=== PATIENT | female | born 1990 | race African-American/Black ===

== ENCOUNTER 2017-01-28 19:29 | Emergency (ER) | payer OTHER ==
[~2017-01-28 19:29] MED LIST: HYDR-971 PO; NAPR500T8 PO; ONDA8TAB12 PO; PNV1TABL25 PO
--- NOTE | 2017-01-28 20:18 | PHYS DOC ---
Past Medical History Past Medical History: Bronchitis Additional Past Medical Histor: hurstism, zofran pump Past Surgical History: Other Additional Past Surgical Histo: right knee surgery Alcohol Use: None Drug Use: None Adult General Chief Complaint Chief Complaint: BACK INJURY HPI HPI Patient is a 27 year old female who presents with back pain for 2 days. 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 2 days ago patient had gradual onset of lumbar back pain with no radiation into lower extremities. No change in bowel or bladder function. No abdominal pain no vomiting or diarrhea. Patient denies any history of back injuries in the past. Patient denies possible Review of Systems Review of Systems Constitutional: Denies fever or chills Eyes: Denies change in visual acuity, redness, or eye pain HENT: Denies nasal congestion or sore throat Respiratory: Denies cough or shortness of breath Cardiovascular: No chest pain or palpitations GI: Denies abdominal pain, nausea, vomiting, bloody stools or diarrhea : Denies dysuria or hematuria Musculoskeletal: Paravertebral lumbar back pain from the L2-L4 region bilaterally with right greater than left. Integument: Denies rash or skin lesions Neurologic: Denies headache, focal weakness or sensory changes Endocrine: Denies polyuria or polydipsia Allergies Allergies Allergies Coded Allergies Type Severity Reaction Last Updated Verified No Known Drug Allergies 07/21/16 No Physical Exam Physical Exam Constitutional: Well developed, well nourished, no acute distress, non-toxic appearance. HENT: Normocephalic, atraumatic, oropharynx moist, no oral exudates, nose normal. Eyes: PERRLA, EOMI, conjunctiva normal, no discharge. Neck: Normal range of motion, no tenderness, supple, no stridor. Cardiovascular:Heart rate regular rhythm, no murmur Lungs & Thorax: Bilateral breath sounds clear to auscultation Abdomen: Bowel sounds normal, soft, no tenderness, no masses, no pulsatile masses. Skin: Warm, dry, no erythema, no rash. Back: Bilateral lumbar paravertebral L to through L4 tenderness, no CVA tenderness. Extremities: No tenderness, no cyanosis, no clubbing, no edema. Neurologic: Alert and oriented X 3, normal motor function, normal sensory function, no focal deficits noted. Psychologic: Affect normal, judgement normal, mood normal. Current Patient Data Vital Signs Vital Signs Date Time Temp Pulse Resp B/P Pulse Ox O2 Delivery O2 Flow Rate FiO2 01/28/17 20:28 90 16 117/80 99 Room Air 01/28/17 19:34 97.7 97.7 EKG EKG [] Radiology/Procedures Radiology/Procedures [] Course & Med Decision Making Course & Med Decision Making Pertinent Labs and Imaging studies reviewed. (See chart for details) [] Dragon Disclaimer Dragon Disclaimer This electronic medical record was generated, in whole or in part, using a voice recognition dictation system. Departure Departure Impression: Primary Impression: Lumbar back sprain Disposition: HOME, SELF-CARE Condition: STABLE Referrals: LEX MERAZ MD (PCP) Patient Instructions: Back Injury Prevention, [id number] Scripts Cyclobenzaprine Hcl 10 Mg Tablet1 Tab PO TID #10 TAB Prov:DARIANA CORTES MD 01/28/17 Naproxen Sodium 550 Mg Tablet1 Tab PO BID #30 TAB Prov:DARIANA CORTES MD 01/28/17 Problem Qualifiers Primary Impression: Lumbar back sprain Encounter type: initial encounter Qualified Code: S33.5XXA - Sprain of ligaments of lumbar spine, initial encounter DARIANA CORTES MD Jan 28, 2017 20:17
[2017-01-28] MEDS ORDERED: CYCL10TA2 PO (20:22)
[2017-01-28] MEDS ORDERED: NAPR550T3 PO (20:22)
[2017-01-28 20:28] VITALS: BP 117/80
== END 2017-01-28 20:29 | disposition home or self-care (01) ==
LOC: ER 19:29
DX: S33.5XXA Sprain of ligaments of lumbar spine, initial encounter (principal); X58.XXXA Exposure to other specified factors, initial encounter; Y93.89 Activity, other specified; Y92.89 Other specified places as the place of occurrence of the external cause; Y99.8 Other external cause status
CPT/HCPCS: 99283

== ENCOUNTER 2017-03-04 13:54 | Emergency (ER) | payer SELFPAY ==
[~2017-03-04] VITALS: Ht 157.5 cm; Wt 86.2 kg
[~2017-03-04 13:54] MED LIST changes: +CYCL10TA2 PO; +NAPR550T3 PO
--- NOTE | 2017-03-04 14:31 | RAD ---
Indication fall, pain. AP oblique and lateral views of the right knee were obtained. Small osteophytes are seen medially. No acute bony finding is apparent. There is no significant joint fluid.
[2017-03-04 14:35] VITALS: BP 124/67
[2017-03-04] MEDS ORDERED: NAPROXEN 500 MG TABLET PO STA (14:42)
[2017-03-04] MEDS ORDERED: HYDROCODONE/APAP 5/325MG TABLET. PO ONE (14:45)
[2017-03-04] MEDS ORDERED: TRAM-29 PO (14:48)
--- NOTE | 2017-03-04 14:49 | PHYS DOC ---
Past Medical History Past Medical History: Bronchitis Additional Past Medical Histor: hurstism, zofran pump Past Surgical History: Other Additional Past Surgical Histo: right knee surgery Alcohol Use: None Drug Use: None Adult General Chief Complaint Chief Complaint: KNEE INJURY HPI HPI Patient is a 27 year old female with no significant medical history presents today with right anterior knee pain that began today after she twisted it. Review of Systems Review of Systems Constitutional: Denies fever or chills [] Eyes: Denies change in visual acuity, redness, or eye pain [] Musculoskeletal: Right anterior knee pain Integument: Denies rash or skin lesions [] Neurologic: Denies headache, focal weakness or sensory changes [] Endocrine: Denies polyuria or polydipsia [] Allergies Allergies Allergies Coded Allergies Type Severity Reaction Last Updated Verified No Known Drug Allergies 07/21/16 No Physical Exam Physical Exam Constitutional: Well developed, well nourished, no acute distress, non-toxic appearance. [] HENT: Normocephalic, atraumatic, bilateral external ears normal, oropharynx moist, no oral exudates, nose normal. [] Skin: Warm, dry, no erythema, no rash. [] Back: No tenderness, no CVA tenderness. [] Extremities: Right knee with no obvious deformity. A small amount of soft tissue swelling diffusely on the right anterior knee. Tenderness diffusely on the right anterior knee. Range of motion to the right knee. Negative Angel sign and negative Jessica's sign negative anterior-posterior drawer sign to the right knee. +2 right pedal pulse. Cap refill less than 2 seconds the right lower extremity. Sensation intact to the right lower extremity. Neurologic: Alert and oriented X 3, normal motor function, normal sensory function, no focal deficits noted. [] Psychologic: Affect normal, judgement normal, mood normal. [] EKG EKG [] Radiology/Procedures Radiology/Procedures []PROCEDURE: KNEE RIGHT 4V Indication fall, pain. AP oblique and lateral views of the right knee were obtained. Small osteophytes are seen medially. No acute bony finding is apparent. There is no significant joint fluid. DICTATED and SIGNED BY: CINDI ARAYA MD DATE: 03/04/17 1471 CC: LEX MERAZ MD; UMER GARCIA MD; MARCELA VASQUEZ APRN ~ Course & Med Decision Making Course & Med Decision Making Pertinent Labs and Imaging studies reviewed. (See chart for details) Patient is in the ED with complaints of right knee pain after twisting it. Right knee x-rays interpreted by radiologist are negative for any acute findings. Patient has right knee sprain. Immobilizer applied to the right knee by the signal maintenance technician, neurovascular exam done by me is normal, ice elevation encouraged. Follow-up with orthopedic doctor in a week if pain continues. Dragon Disclaimer Dragon Disclaimer This electronic medical record was generated, in whole or in part, using a voice recognition dictation system. Departure Departure Impression: Primary Impression: Sprain of right knee Disposition: HOME, SELF-CARE Condition: STABLE Referrals: LEX MERAZ MD (PCP) CELSO RANGEL MD Follow-up with the provided orthopedic doctor in one week if pain continues Patient Instructions: Knee Sprain Additional Instructions: You were seen for right knee pain after twisting it. Your x-ray is negative for anything acute. We suspect you have right knee sprain. Follow-up with orthopedic doctor in a week if pain continues because you could have other injuries that don't show up on x-rays that may need to father studies. Ice and elevate the extremity. Take the prescribed medicines as ordered. Scripts Tramadol Hcl (ULTRAM) 50 Mg Tablet 1 TAB PO TID, #30 TAB Prov: MARCELA VASQUEZ APRN 03/04/17 Problem Qualifiers Primary Impression: Sprain of right knee Encounter type: initial encounter Involved ligament of knee: unspecified ligament Qualified Codes: S83.91XA - Sprain of unspecified site of right knee , initial encounter MARCELA VASQUEZ APRN March 04, 2017 14:49
== END 2017-03-04 15:05 | disposition home or self-care (01) ==
LOC: ER 13:54
DX: S83.91XA Sprain of unspecified site of right knee, initial encounter (principal); X58.XXXA Exposure to other specified factors, initial encounter; Y93.89 Activity, other specified; Y92.89 Other specified places as the place of occurrence of the external cause; Y99.8 Other external cause status
CPT/HCPCS: 29505; 73564; 99284-25

== ENCOUNTER 2017-09-16 20:47 | Emergency (ER) | payer OTHER ==
[~2017-09-16] VITALS: Ht 162.6 cm; Wt 86.2 kg
[~2017-09-16 20:47] MED LIST changes: +NAPR-677 PO; -NAPR550T3 PO; +TRAM-48 PO
[2017-09-16 20:58] VITALS: BP 109/70
--- NOTE | 2017-09-17 00:22 | PHYS DOC ---
Past Medical History Past Medical History: No Pertinent History Additional Past Medical Histor: hurstism, zofran pump Past Surgical History: Other Additional Past Surgical Histo: Torn ACL R)knee with surgical repair. Alcohol Use: Occasionally Drug Use: None Adult General Chief Complaint Chief Complaint: CHEST PAIN HPI HPI 27-year-old -[place] female presents the emergency department complaining of nonproductive cough for 5 days. Patient states she think she has a cold but her cough will just does not go away. She has no exertional chest pain or pleuritic pain. No fevers chills sweats or shaking chills. No headache or stiff neck. Patient is otherwise asymptomatic. She has no history of asthma and denies smoking. Review of Systems Review of Systems Constitutional: Denies fever or chills [] Eyes: Denies change in visual acuity, redness, or eye pain [] HENT: Denies nasal congestion or sore throat [] Respiratory: Denies cough or shortness of breath [] Cardiovascular: No additional information not addressed in HPI [] GI: Denies abdominal pain, nausea, vomiting, bloody stools or diarrhea [] : Denies dysuria or hematuria [] Musculoskeletal: Denies back pain or joint pain [] Integument: Denies rash or skin lesions [] Neurologic: Denies headache, focal weakness or sensory changes [] Endocrine: Denies polyuria or polydipsia [] All other systems were reviewed and found to be within normal limits, except as documented in this note. Allergies Allergies Allergies Coded Allergies Type Severity Reaction Last Updated Verified No Known Drug Allergies 07/21/16 No Physical Exam Physical Exam 27-year-old female no acute distress alert communicative no tachypnea. Normal respiratory rate and pulse ox. Mild prolonged expirations bilaterally and occasional scattered rhonchi but no trish wheezes no rales or rubs. Benign abdomen normal extremities no edema nonfocal neurologic exam Constitutional: Well developed, well nourished, no acute distress, non-toxic appearance. [] HENT: Normocephalic, atraumatic, bilateral external ears normal, oropharynx moist, no oral exudates, nose normal. [] Eyes: PERRLA, EOMI, conjunctiva normal, no discharge. [] Neck: Normal range of motion, no tenderness, supple, no stridor. [] Cardiovascular:Heart rate regular rhythm, no murmur [] Lungs & Thorax: As above Abdomen: Bowel sounds normal, soft, no tenderness, no masses, no pulsatile masses. [] Skin: Warm, dry, no erythema, no rash. [] Back: No tenderness, no CVA tenderness. [] Extremities: No tenderness, no cyanosis, no clubbing, ROM intact, no edema. [] Neurologic: Alert and oriented X 3, normal motor function, normal sensory function, no focal deficits noted. [] Psychologic: Affect normal, judgement normal, mood normal. [] Current Patient Data Vital Signs Vital Signs Date Time Temp Pulse Resp B/P (MAP) Pulse Ox O2 Delivery O2 Flow Rate FiO2 09/16/17 20:58 98.7 95 22 109/70 (83) 99 Room Air 98.7 EKG EKG [] Radiology/Procedures Radiology/Procedures [] Course & Med Decision Making Course & Med Decision Making Pertinent Labs and Imaging studies reviewed. (See chart for details) Signs and symptoms consistent with viral URI versus atypical pulmonary infection. Well-appearing patient with normal respiratory rate and pulse ox. No clinical evidence of pulmonary embolism or acute coronary syndrome. Discussed with patient will check chest x-ray to rule out less likely possibility of pneumothorax or other concerning finding. Discussed with patient will give bronchodilator therapy for symptomatically relief of cough as well as prescription for Zithromax for treatment of atypical infection. She is where the possibility of viral etiology alone. Discussed with patient he is his next DM and will prescribe Tessalon however patient states she does not swallow pills and she requested "some cough syrup "multiple times. 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 Patient was unwilling to wait for her prescriptions or any further treatment. She is encouraged to return any time. Suspect the patient had a "cough syrup "seeking component to her presentation. [] Dragon Disclaimer Dragon Disclaimer This electronic medical record was generated, in whole or in part, using a voice recognition dictation system. Departure Departure Impression: Primary Impression: Upper respiratory infection Additional Impression: Cough Disposition: 07 AGAINST MEDICAL ADVICE Condition: GOOD Referrals: NO PCP (PCP) Problem Qualifiers NICK HOLLINGSWORTH MD Sep 17, 2017 00:22
== END 2017-09-16 21:45 | disposition left against medical advice (07) ==
LOC: ER 20:47
DX: J06.9 Acute upper respiratory infection, unspecified (principal)
CPT/HCPCS: 99281

== ENCOUNTER 2017-10-13 10:32 | Emergency (ER) | payer OTHER ==
[~2017-10-13] VITALS: Ht 157.5 cm; Wt 79.4 kg
[2017-10-13] MEDS ORDERED: predniSONE 10 MG TABLET PO ONE (11:30)
[2017-10-13] MEDS ORDERED: IPRATRPIUM/ALBUTEROL 0.5/2.5MG 3 ML NEBU. NEB ONE (11:30)
[2017-10-13] MEDS ORDERED: BENZONATATE 100 MG CAPSULE. PO ONE (11:30)
--- NOTE | 2017-10-13 12:06 | RAD ---
Chest, 2 views, 10/13/2017: History: Cough, wheezing, chest pain Comparison is made to a study from 07/05/2014. The heart size and pulmonary vascularity are normal. There is an unchanged density at the right cardiophrenic angle level anteriorly. This is probably a prominent epicardial fat pad. A stable mass such as a pericardial cyst could also give this appearance. No acute infiltrate is seen. There is no evidence of pleural fluid. IMPRESSION: No acute cardiopulmonary abnormality is detected.
[2017-10-13] MEDS ORDERED: BENZ100C PO (12:23)
[2017-10-13] MEDS ORDERED: PRED50TA PO (12:23)
[2017-10-13] MEDS ORDERED: VENTOLIN HFA18 GM INH (12:23)
--- NOTE | 2017-10-13 12:23 | PHYS DOC ---
Past Medical History Past Medical History: No Pertinent History Additional Past Medical Histor: hurstism, zofran pump Past Surgical History: Other Additional Past Surgical Histo: Torn ACL R)knee with surgical repair. Alcohol Use: Occasionally Drug Use: None Adult General Chief Complaint Chief Complaint: COUGH HPI HPI Patient is a 27 year old female with no significant medical history who presents today with a productive cough nasal congestion and wheezing for 3 days. Patient denies any fever. Review of Systems Review of Systems Constitutional: Denies fever or chills [] Eyes: Denies change in visual acuity, redness, or eye pain [] HENT: Reports nasal congestion, denies sore throat [] Respiratory: Reports productive cough and wheezing, denies shortness of breath [ ] Cardiovascular: No additional information not addressed in HPI [] GI: Denies abdominal pain, nausea, vomiting, bloody stools or diarrhea [] : Denies dysuria or hematuria [] Musculoskeletal: Denies back pain or joint pain [] Integument: Denies rash or skin lesions [] Neurologic: Denies headache, focal weakness or sensory changes [] All other systems were reviewed and found to be within normal limits, except as documented in this note. Current Medications Current Medications Current Medications Medications (Trade) Dose Ordered Sig/Cortez Start Time Stop Time Status Last Admin Dose Admin Albuterol/ Ipratropium (Duoneb) 3 ml 1X ONCE 10/13/17 11:30 10/13/17 11:31 DC 10/13/17 11:35 3 ML Benzonatate (Tessalon Perle) 100 mg 1X ONCE 10/13/17 11:30 10/13/17 11:31 DC 10/13/17 11:33 100 MG Prednisone (Prednisone) 50 mg 1X ONCE 10/13/17 11:30 10/13/17 11:31 DC 10/13/17 11:32 50 MG Allergies Allergies Allergies Coded Allergies Type Severity Reaction Last Updated Verified No Known Drug Allergies 07/21/16 No Physical Exam Physical Exam Constitutional: Well developed, well nourished, no acute distress, non-toxic appearance. [] HENT: Normocephalic, atraumatic, bilateral external ears normal, oropharynx moist, no oral exudates, nose normal. [] Eyes: PERRLA, EOMI, conjunctiva normal, no discharge. [] Neck: Normal range of motion, no tenderness, supple, no stridor. [] Cardiovascular:Heart rate regular rhythm, no murmur [] Lungs & Thorax: Bilateral breath sounds clear to auscultation [] Abdomen: Bowel sounds normal, soft, no tenderness, no masses, no pulsatile masses. [] Skin: Warm, dry, no erythema, no rash. [] Back: No tenderness, no CVA tenderness. [] Extremities: No tenderness, no cyanosis, no clubbing, ROM intact, no edema. [] Neurologic: Alert and oriented X 3, normal motor function, normal sensory function, no focal deficits noted. [] Psychologic: Affect normal, judgement normal, mood normal. [] Current Patient Data Vital Signs Vital Signs Date Time Temp Pulse Resp B/P (MAP) Pulse Ox O2 Delivery O2 Flow Rate FiO2 10/13/17 11:35 Room Air 10/13/17 10:58 98.5 76 20 100 98.5 EKG EKG [] Radiology/Procedures Radiology/Procedures [] Course & Med Decision Making Course & Med Decision Making Pertinent Labs and Imaging studies reviewed. (See chart for details) Patient is in the ED with a cough and nasal congestion for 3 days, chest x-ray interpreted by radiologist as negative for any acute findings. Patient spend an incredible amount of time asking for cough medicine prescription strength. Informed her we will not give any codeine with promethazine but will send her home with albuterol treatments prednisone and Tessalon Perles and she can take [id number] cough syrups. Follow-up with her PCP in 1-2 weeks. Amira Disclaimer Dragon Disclaimer This electronic medical record was generated, in whole or in part, using a voice recognition dictation system. Departure Departure Impression: Primary Impression: Acute bronchitis Additional Impression: Upper respiratory infection Disposition: HOME, SELF-CARE Condition: STABLE Referrals: NO PCP (PCP) follow up with your doctor in 1-2 weeks Patient Instructions: Acute Bronchitis, Upper Respiratory Infection, Adult, [id number] Additional Instructions: You were seen with symptoms consistent of viral bronchitis and an upper respiratory infection. Take the prescribed medicines as ordered. You can take ncrj-iqg-gobadax cough syrups. Follow-up with your own doctor in 1-2 weeks. Scripts Albuterol Sulfate (VENTOLIN HFA INHALER) 18 Gm Hfa.aer.ad 2 PUFF INH Q4HRS for FOR ASTHMA, #1 INHALER 0 Refills Prov: MARCELA VASQUEZ APRN 10/13/17 Prednisone (PREDNISONE) 50 Mg Tablet 1 TAB PO DAILY, #4 TAB Prov: MARCELA VASQUEZ APRN 10/13/17 Benzonatate (TESSALON PERLE) 100 Mg Capsule 1 CAP PO TID, #30 CAP Prov: MARCELA VASQUEZ APRN 10/13/17 Problem Qualifiers Primary Impression: Acute bronchitis Bronchitis organism: unspecified organism Qualified Codes: J20.9 - Acute bronchitis, unspecified Additional Impression: Upper respiratory infection URI type: unspecified URI Qualified Codes: J06.9 - Acute upper respiratory infection, unspecified MARCELA VASQUEZ APRN Oct 13, 2017 12:23
[2017-10-13 12:30] VITALS: BP 122/80
== END 2017-10-13 12:39 | disposition home or self-care (01) ==
LOC: ER 10:32
DX: J20.9 Acute bronchitis, unspecified (principal); J06.9 Acute upper respiratory infection, unspecified
CPT/HCPCS: 71020; 94640; 99284; J7512; J7620

== ENCOUNTER 2017-12-01 16:06 | Emergency (ER) | payer OTHER | END 2017-12-01 16:53 | disposition home or self-care (01) | LOC: ER 16:06 | DX: J20.9 Acute bronchitis, unspecified (principal) | CPT/HCPCS: 99283 ==

== ENCOUNTER 2018-08-03 14:57 | Emergency (ER) | payer SELFPAY ==
[~2018-08-03] VITALS: Ht 157.5 cm; Wt 77.1 kg
[~2018-08-03 14:57] MED LIST changes: +AZIT250T6 PO; +BENZ100C PO; +PRED20TA PO; +PRED50TA PO; +VENTOLIN HFA18 GM INH
[2018-08-03 15:09] VITALS: BP 129/63
--- NOTE | 2018-08-03 15:56 | RAD ---
Left foot, 3 views, 08/03/2018: HISTORY: Fall, pain No fracture or dislocation is identified. There is a mild hallux valgus deformity. IMPRESSION: No acute bony abnormality is detected. Electronically signed by: Michael Yeung MD (08/03/2018 3:52 PM) [facility]
[2018-08-03] MEDS ORDERED: TRAM50TA PO (16:07)
[2018-08-03] MEDS ORDERED: CYCL10TA2 PO (16:07)
--- NOTE | 2018-08-03 16:07 | PHYS DOC ---
Past Medical History Past Medical History: No Pertinent History Additional Past Medical Histor: hurstism, zofran pump Past Surgical History: Other Additional Past Surgical Histo: Torn ACL R)knee with surgical repair. Alcohol Use: Occasionally Drug Use: None Adult General Chief Complaint Chief Complaint: FOOT INJURY PAIN [facility] HPI Patient is a 28 year old female presents with left foot pain. Patient reports 2 or 3 days ago she fell, landing with her left foot underneath her. She has been taking ibuprofen without relief. There is bruising along the lateral aspect of the foot. Additionally, she reports muscle tightness in her upper back and neck. Review of Systems Review of Systems Constitutional: Denies fever or chills [] Respiratory: Denies cough or shortness of breath [] Cardiovascular: No additional information not addressed in HPI [] Musculoskeletal: Patient reports upper back and neck stiffness, pain and bruising to the lateral aspect of the left foot. Integument: Denies rash or skin lesions [] Neurologic: Denies focal weakness or sensory changes [] All other systems were reviewed and found to be within normal limits, except as documented in this note. Allergies Allergies Allergies Coded Allergies Type Severity Reaction Last Updated Verified No Known Drug Allergies 07/21/16 No Physical Exam Physical Exam Constitutional: Well developed, well nourished, no acute distress, non-toxic appearance. [] HENT: Normocephalic, atraumatic Eyes: PERRLA, EOMI, conjunctiva normal, no discharge. [] Neck: Normal range of motion, no tenderness, supple, no stridor. [] Skin: Warm, dry, no erythema, no rash. [] Extremities: No tenderness to left lateral foot, range of motion intact Neurologic: Alert and oriented X 3, normal motor function, normal sensory function, no focal deficits noted. [] Psychologic: Affect normal, judgement normal, mood normal. [] Current Patient Data Vital Signs Vital Signs Date Time Temp Pulse Resp B/P (MAP) Pulse Ox O2 Delivery O2 Flow Rate FiO2 08/03/18 15:09 98.7 88 18 129/63 (85) 98 Room Air 98.7 EKG EKG [] Radiology/Procedures Radiology/Procedures [] Course & Med Decision Making Course & Med Decision Making Pertinent Labs and Imaging studies reviewed. (See chart for details) PATIENT: VALERIE SAMUEL AACCOUNT: [id number]#: [id number] : 1990 LOCATION: ER AGE: 28 SEX: F EXAM STATUS: REG ER ORD. PHYSICIAN: CORNELIA MCINTOSH APRN REASON: pain, fall PROCEDURE: FOOT LEFT 3V Left foot, 3 views, 08/03/2018: HISTORY: Fall, pain No fracture or dislocation is identified. There is a mild hallux valgus deformity. IMPRESSION: No acute bony abnormality is detected. Electronically signed by: Michael Yeung MD (08/03/2018 3:52 PM) [facility] DICTATED and SIGNED BY: MICHAEL YEUNG MD DATE: 08/03/18 1550 Plan: Lalito wrap, ice and elevate, tramadol Rx, Flexeril Rx, follow-up with PCP[] Staff Physician Addendum: I was working in the ER during the course of this patient's visit. I was available for consultation as needed, but I was not directly involved in the care of this patient. Dragon Disclaimer Dragon Disclaimer This electronic medical record was generated, in whole or in part, using a voice recognition dictation system. Departure Departure Impression: Primary Impression: Contusion of foot, left Disposition: 01 HOME, SELF-CARE Condition: GOOD Referrals: NO PCP (PCP) MAI JAEGER MD Patient Instructions: Contusion Scripts Cyclobenzaprine Hcl (CYCLOBENZAPRINE HCL) 10 Mg Tablet 1 TAB PO TID, #15 TAB Prov: CORNELIA MCINTOSH APRN 08/03/18 Tramadol Hcl (TRAMADOL HCL) 50 Mg Tablet 50 MG PO Q6HRS PRN for PAIN, #15 TAB Prov: CORNELIA MCINTOSH APRN 08/03/18 Problem Qualifiers Primary Impression: Contusion of foot, left Encounter type: initial encounter Qualified Codes: S90.32XA - Contusion of left foot, initial encounter CORNELIA MCINTOSH APRN Aug 03, 2018 16:07 MARLA TORRES MD Aug 04, 2018 06:30
== END 2018-08-03 16:20 | disposition home or self-care (01) ==
LOC: ER 14:57
DX: S90.32XA Contusion of left foot, initial encounter (principal); M43.6 Torticollis; W18.39XA Other fall on same level, initial encounter; Y93.89 Activity, other specified; Y92.89 Other specified places as the place of occurrence of the external cause; Y99.8 Other external cause status
CPT/HCPCS: 73630; 99284